=== PATIENT | female | born 1985 | race Caucasian/White ===

== ENCOUNTER → 2017-02-26 | Outpatient (CLI) | payer OTHER ==
[~2017-02-26] MED LIST: BENZ100A PO; CALCA500CH; CEPH500 PO; CYCL10 PO; FAMO40 PO; HYDACE5 PO; IBUP800 PO; LEVSOD100; LEVSOD125 PO; LEVSOD75 PO; OXYACE5T PO; Percocet 5-3251 EACH PO; Prednisone20 MG PO; Verotin-Gr Cap1 EACH; Zithromax250 MG PO
== END ==
LOC: LAB SHORT 11:22
DX: Z33.1 Pregnant state, incidental (principal)
CPT/HCPCS: 87081; 87653

== ENCOUNTER 2017-03-17 04:10 | Inpatient (IN) | payer OTHER ==
[~2017-03-17] VITALS: Ht 162.6 cm; Wt 174.6 kg
[~2017-03-17 04:10] MED LIST changes: -CEPH500 PO; -CYCL10 PO; -LEVSOD100
[2017-03-17] MEDS ORDERED: LEVSOD100 (09:14)
[2017-03-17 09:21] LABS: BASOPHILS ABSOLUTE AUTO 0.02 K/mm3 (0.00-0.23); BASOPHILS PERCENT AUTO 0 % (0-2); EOSINOPHILS ABSOLUTE AUTO 0.14 K/mm3 (0.00-0.68); EOSINOPHILS PERCENT AUTO 1 % (0-6); Hematocrit 36.9 % (33.0-51.0); Hemoglobin 12.4 g/dL (11.5-16.0); IMMATURE GRAN ABSOLUTE AUTO 0.05 K/mm3 (0.00-0.10); IMMATURE GRAN PERCENT AUTO 1 % (0-1); LYMPHOCYTES ABSOLUTE AUTO 1.79 K/mm3 (0.84-5.20); LYMPHOCYTES PERCENT AUTO 17 % (21-46); MONOCYTES PERCENT AUTO 5 % (4-13); Mean Corpuscular HGB 28.1 pg (26.0-34.0); Mean Corpuscular HGB Conc 33.6 g/dL (31.5-36.5); Mean Corpuscular Volume 84 fL (80-100); Mean Platelet Volume 11.2 fL (9.1-12.4); NEUTROPHILS PERCENT AUTO 77 % (41-73); Platelet Count 174 K/mm3 (150-400); RDW Coefficient Variation 13.7 % (11.7-14.2); RDW Standard Deviation 41.6 fL (35.1-46.3); Red Blood Cell Count 4.42 M/mm3 (3.80-5.20)
[2017-03-18 06:27] LABS: Hematocrit 36.9 % (33.0-51.0); Hemoglobin 12.1 g/dL (11.5-16.0); Mean Corpuscular HGB 27.9 pg (26.0-34.0); Mean Corpuscular HGB Conc 32.8 g/dL (31.5-36.5); Mean Corpuscular Volume 85 fL (80-100); Mean Platelet Volume 11.2 fL (9.1-12.4); Platelet Count 177 K/mm3 (150-400); RDW Coefficient Variation 13.6 % (11.7-14.2); RDW Standard Deviation 42.1 fL (35.1-46.3); Red Blood Cell Count 4.33 M/mm3 (3.80-5.20); White Blood Cell Count 12.32 K/mm3 (4.00-11.30)
[2017-03-19] MEDS ORDERED: IBUP800 PO (10:31)
[2017-03-19] MEDS ORDERED: Percocet 5-3251 EACH PO (10:32)
== END 2017-03-19 15:35 | disposition home or self-care (01) | DRG 775 ==
LOC: BC 04:10
PROVIDERS: Obstetrics & Gynecology
PROC: 10E0XZZ Delivery of Products of Conception, External Approach (ICD-10-PCS; principal; 2017-03-17)
PROC: 0HQ9XZZ Repair Perineum Skin, External Approach (ICD-10-PCS; 2017-03-17)
PROC: 10907ZC Drainage of Amniotic Fluid, Therapeutic from Products of Conception, Via Natural or Artificial Opening (ICD-10-PCS; 2017-03-17)
PROC: 3E033VJ Introduction of Other Hormone into Peripheral Vein, Percutaneous Approach (ICD-10-PCS; 2017-03-17)
PROC: 10H07YZ Insertion of Other Device into Products of Conception, Via Natural or Artificial Opening (ICD-10-PCS; 2017-03-17)
DX: O24.424 Gestational diabetes mellitus in childbirth, insulin controlled (principal); Z68.44 Body mass index [BMI] 60.0-69.9, adult; E66.01 Morbid (severe) obesity due to excess calories; O99.824 Streptococcus B carrier state complicating childbirth; Z37.0 Single live birth; Z3A.39 39 weeks gestation of pregnancy; O99.214 Obesity complicating childbirth; O70.0 First degree perineal laceration during delivery; O69.81X0 Labor and delivery complicated by cord around neck, without compression, not applicable or unspecified; O99.284 Endocrine, nutritional and metabolic diseases complicating childbirth; E03.9 Hypothyroidism, unspecified; Z87.891 Personal history of nicotine dependence
CPT/HCPCS: 36415; 51702; 59025; 82947; 85025; 85027; 90471; 90707; 99213; J0290; J1885; J2210; J2590; J3010; J7050; J7120

== ENCOUNTER 2017-08-13 14:44 | Emergency (ER) | payer OTHER ==
[~2017-08-13] VITALS: Ht 162.6 cm; Wt 171.5 kg
[~2017-08-13 14:44] MED LIST changes: +LEVSOD100
[2017-08-13 15:56] LABS: Source, Urine Clean Catch
[2017-08-13 16:01] LABS: Appearance, Urine Clear (Clear); Bilirubin, Urine Neg (Neg); Blood, Urine 3+ (Neg); Color, Urine Yellow (P-Yellow); Glucose Qualitative, Urine Neg (Neg); Ketones, Urine Neg (Neg); Leukocyte Esterase, Urine 2+ (Neg); Nitrite, Urine Neg (Neg); Protein, Urine 2+ (Neg); Urobilinogen, Urine 1+ (Normal)
[2017-08-13 16:18] LABS: Bacteria Many /hpf; Mucus Light (0-Heavy); Red Blood Cells, Urine 0-2 /hpf (0-2); Squamous Epithelial Cells Many /hpf (Few)
[2017-08-13] MEDS ORDERED: CEPH500 PO (16:28)
[2017-08-13] MEDS ORDERED: CYCL10 PO (16:28)
[2017-08-13] MEDS ORDERED: IBUP800 PO (16:28)
== END 2017-08-13 16:33 | disposition home or self-care (01) ==
LOC: ER 14:44
PROVIDERS: Physician Assistant
DX: M53.3 Sacrococcygeal disorders, not elsewhere classified (principal); N39.0 Urinary tract infection, site not specified; E03.9 Hypothyroidism, unspecified; Z79.899 Other long term (current) drug therapy; Z87.891 Personal history of nicotine dependence
CPT/HCPCS: 81001; 81025; 87086; 96372; 99283; J1885

== ENCOUNTER → 2017-09-09 | Outpatient (CLI) | payer OTHER ==
[~2017-09-09] MED LIST changes: +CEPH500 PO; +CYCL10 PO
== END | disposition home or self-care (01) ==
LOC: LAB 15:21 → LAB SHORT 15:21
PROVIDERS: Obstetrics & Gynecology
DX: Z01.419 Encounter for gynecological examination (general) (routine) without abnormal findings (principal)
CPT/HCPCS: 87624; G0123

== ENCOUNTER → 2021-06-24 | Outpatient (CLI) | payer OTHER | LOC: LAB 13:00 → LAB SHORT 13:00 | DX: R39.15 Urgency of urination (principal) | CPT/HCPCS: 87077; 87086; 87186 ==

== ENCOUNTER 2021-07-20 21:38 | Emergency (ER) | payer OTHER ==
[~2021-07-20] VITALS: Ht 162.6 cm; Wt 158.3 kg
[2021-07-21 02:10] LABS: BASOPHILS ABSOLUTE AUTO 0.05 K/mm3 (0.00-0.23); BASOPHILS PERCENT AUTO 1 % (0-2); EOSINOPHILS ABSOLUTE AUTO 0.38 K/mm3 (0.00-0.68); EOSINOPHILS PERCENT AUTO 5 % (0-6); Hematocrit 40.2 % (33.0-51.0); IMMATURE GRAN ABSOLUTE AUTO 0.03 K/mm3 (0.00-0.10); IMMATURE GRAN PERCENT AUTO 0 % (0-1); LYMPHOCYTES ABSOLUTE AUTO 2.17 K/mm3 (0.84-5.20); LYMPHOCYTES PERCENT AUTO 26 % (21-46); MONOCYTES PERCENT AUTO 7 % (4-13); Mean Corpuscular HGB 27.7 pg (26.0-34.0); Mean Corpuscular HGB Conc 32.3 g/dL (31.5-36.5); Mean Corpuscular Volume 86 fL (80-100); Mean Platelet Volume 10.6 fL (9.1-12.4); NEUTROPHILS ABSOLUTE AUTO 5.16 K/mm3 (1.96-9.15); NEUTROPHILS PERCENT AUTO 61 % (41-73); Platelet Count 263 K/mm3 (150-400); RDW Coefficient Variation 15.1 % (11.7-14.2); RDW Standard Deviation 46.5 fL (35.1-46.3); Red Blood Cell Count 4.69 M/mm3 (3.80-5.20); White Blood Cell Count 8.39 K/mm3 (4.00-11.30)
[2021-07-21 02:25] LABS: Bun/Creatinine Ratio 14.4 (12.0-20.0); Calcium, Blood 9.3 mg/dL (8.5-10.1); Creatinine, Blood 0.7 mg/dL (0.40-1.00); Potassium, Blood 3.7 mmol/L (3.5-5.5)
== END 2021-07-21 05:00 | disposition home or self-care (01) ==
LOC: ER 21:38
PROVIDERS: Student in an Organized Health Care Education/Training Program
DX: R42 Dizziness and giddiness (principal); E03.9 Hypothyroidism, unspecified; E66.9 Obesity, unspecified; Z68.43 Body mass index [BMI] 50.0-59.9, adult; Z87.891 Personal history of nicotine dependence; Z98.84 Bariatric surgery status; Z79.899 Other long term (current) drug therapy
CPT/HCPCS: 36415; 80048; 85025; 93005; 93010; 96360; 99284-25; J7030

== ENCOUNTER → 2021-08-19 | Outpatient (CLI) | payer OTHER ==
[2021-08-19 14:42] LABS: G. vaginalis (DNA Probe) Positive (NEGATIVE); T. vaginalis (DNA Probe) Negative (NEGATIVE)
[2021-08-19 14:43] LABS: Candida species (DNA Probe) Positive (NEGATIVE)
== END ==
LOC: LAB SHORT 09:37
PROVIDERS: Obstetrics & Gynecology
DX: Z11.3 Encounter for screening for infections with a predominantly sexual mode of transmission (principal); N89.8 Other specified noninflammatory disorders of vagina
CPT/HCPCS: 87480; 87510; 87660

== ENCOUNTER → 2022-05-25 | Outpatient (CLI) | payer OTHER ==
[~2022-05-25] MED LIST changes: +EUTHYROX75 MC1 PO; +PRENATAL TABLE1 EAC2 PO
== END ==
LOC: LAB 17:42 → LAB SHORT 17:42
DX: L02.214 Cutaneous abscess of groin (principal)
CPT/HCPCS: 87070; 87075; 87077; 87147; 87186; 87205

== ENCOUNTER → 2022-07-10 | Outpatient (CLI) | payer OTHER | END | disposition home or self-care (01) | LOC: LAB SHORT 16:34 → LAB 16:34 | DX: O09.892 Supervision of other high risk pregnancies, second trimester (principal) | CPT/HCPCS: 87081; 87150 ==

== ENCOUNTER → 2022-07-14 | Outpatient (CLI) | payer OTHER ==
[2022-07-14 14:05] LABS: Candida species (DNA Probe) Positive (NEGATIVE); G. vaginalis (DNA Probe) Positive (NEGATIVE); T. vaginalis (DNA Probe) Negative (NEGATIVE)
== END | disposition home or self-care (01) ==
LOC: LAB SHORT 11:43 → LAB 11:43
PROVIDERS: Obstetrics & Gynecology
DX: N76.0 Acute vaginitis (principal)
CPT/HCPCS: 87480; 87510; 87660

== ENCOUNTER 2022-08-10 06:40 | Inpatient (IN) | payer OTHER ==
[~2022-08-10] VITALS: Ht 162.6 cm; Wt 121.5 kg
[2022-08-10] VITALS (32 sets, daily range): BP systolic 89–151; BP diastolic 45–82
[~2022-08-10 06:40] MED LIST changes: +B12-FOLIC ACID1 EACH PO; +THERA-D2000 UNIT PO
[2022-08-10 08:27] LABS: BASOPHILS ABSOLUTE AUTO 0.02 K/mm3 (0.00-0.23); BASOPHILS PERCENT AUTO 0 % (0-2); EOSINOPHILS ABSOLUTE AUTO 0.12 K/mm3 (0.00-0.68); EOSINOPHILS PERCENT AUTO 2 % (0-6); IMMATURE GRAN ABSOLUTE AUTO 0.02 K/mm3 (0.00-0.10); IMMATURE GRAN PERCENT AUTO 0 % (0-1); LYMPHOCYTES ABSOLUTE AUTO 1.45 K/mm3 (0.84-5.20); LYMPHOCYTES PERCENT AUTO 20 % (21-46); MONOCYTES ABSOLUTE AUTO 0.37 K/mm3 (0.16-1.47); MONOCYTES PERCENT AUTO 5 % (4-13); Mean Corpuscular HGB 28.9 pg (26.0-34.0); Mean Corpuscular HGB Conc 34.4 g/dL (31.5-36.5); Mean Corpuscular Volume 84 fL (80-100); Mean Platelet Volume 11.2 fL (9.1-12.4); NEUTROPHILS PERCENT AUTO 73 % (41-73); Platelet Count 150 K/mm3 (150-400); RDW Coefficient Variation 13.8 % (11.7-14.2); RDW Standard Deviation 41.7 fL (35.1-46.3); White Blood Cell Count 7.38 K/mm3 (4.00-11.30)
--- NOTE | 2022-08-10 19:08 | NUR ---
REPORT TO ANDREW ALLEN. FUNDUS FIRM BUT EXPRESS CLOTS WITH EACH RUB. METHERGINE IM GIVEN AT [phone]. QBL NOW [phone]. DR RAMOS UPDATED AND DR RILEY NOW ASSUMING CARE.
[2022-08-11 04:34] VITALS: BP 113/56
[2022-08-11 06:57] LABS: Hematocrit 29.1 % (33.0-51.0); Hemoglobin 9.9 g/dL (11.5-16.0); Mean Corpuscular HGB 28.7 pg (26.0-34.0); Mean Corpuscular Volume 84 fL (80-100); Mean Platelet Volume 10.9 fL (9.1-12.4); Platelet Count 136 K/mm3 (150-400); RDW Coefficient Variation 13.8 % (11.7-14.2); RDW Standard Deviation 41.6 fL (35.1-46.3); Red Blood Cell Count 3.45 M/mm3 (3.80-5.20); White Blood Cell Count 8.52 K/mm3 (4.00-11.30)
[2022-08-11 08:22] VITALS: BP 112/68
[2022-08-11 11:27] VITALS: BP 105/58
[2022-08-11 15:15] VITALS: BP 116/60
--- NOTE | 2022-08-11 18:37 | NUR ---
PATIENT EDUCATION DONE. PATIENT VERBALIZED UNDERSTANDING, DENIED ANY FURTHER QUESTIONS OR CONCERNS. IV D/C. PATIENT DISCHARGED TO [facility]ARDER STATUS.
[2022-08-11 18:50] VITALS: BP 110/65
== END 2022-08-11 19:13 | disposition home or self-care (01) | DRG 806 ==
LOC: OBS 06:40 → BC 06:56
PROVIDERS: Obstetrics & Gynecology; ADMIT Obstetrics & Gynecology
PROC: 10E0XZZ Delivery of Products of Conception, External Approach (ICD-10-PCS; principal; 2022-08-10)
PROC: 0KQM0ZZ Repair Perineum Muscle, Open Approach (ICD-10-PCS; 2022-08-10)
PROC: 10907ZC Drainage of Amniotic Fluid, Therapeutic from Products of Conception, Via Natural or Artificial Opening (ICD-10-PCS; 2022-08-10)
PROC: 3E033VJ Introduction of Other Hormone into Peripheral Vein, Percutaneous Approach (ICD-10-PCS; 2022-08-10)
PROC: 3E0R3BZ Introduction of Anesthetic Agent into Spinal Canal, Percutaneous Approach (ICD-10-PCS; 2022-08-10)
PROC: 00HU33Z Insertion of Infusion Device into Spinal Canal, Percutaneous Approach (ICD-10-PCS; 2022-08-10)
PROC: 10H07YZ Insertion of Other Device into Products of Conception, Via Natural or Artificial Opening (ICD-10-PCS; 2022-08-10)
DX: O99.344 Other mental disorders complicating childbirth (principal); D62 Acute posthemorrhagic anemia; Z37.0 Single live birth; O72.1 Other immediate postpartum hemorrhage; O99.284 Endocrine, nutritional and metabolic diseases complicating childbirth; O99.844 Bariatric surgery status complicating childbirth; E03.9 Hypothyroidism, unspecified; F41.9 Anxiety disorder, unspecified; O99.214 Obesity complicating childbirth; O69.1XX0 Labor and delivery complicated by cord around neck, with compression, not applicable or unspecified; O70.1 Second degree perineal laceration during delivery; O90.81 Anemia of the puerperium; Z3A.39 39 weeks gestation of pregnancy; Z87.891 Personal history of nicotine dependence; Z79.890 Hormone replacement therapy; Z90.49 Acquired absence of other specified parts of digestive tract; Z79.899 Other long term (current) drug therapy; Z67.10 Type A blood, Rh positive
CPT/HCPCS: 36415; 51702; 85025; 85027; 86850; 86900; 86901; A9270; J1885; J2210; J2590; J2916; J7120

== ENCOUNTER → 2022-09-25 | Outpatient (CLI) | payer OTHER ==
[2022-09-26 10:49] LABS: Candida species (DNA Probe) Negative (NEGATIVE); G. vaginalis (DNA Probe) Positive (NEGATIVE); T. vaginalis (DNA Probe) Negative (NEGATIVE)
== END | disposition home or self-care (01) ==
LOC: LAB SHORT 18:01
PROVIDERS: Obstetrics & Gynecology
DX: N89.8 Other specified noninflammatory disorders of vagina (principal)
CPT/HCPCS: 87480; 87510; 87660

== ENCOUNTER 2022-10-12 09:48 | Day surgery (SDC) | payer OTHER ==
[~2022-10-12] VITALS: Ht 165.1 cm; Wt 113.5 kg
[2022-10-12] VITALS (14 sets, daily range): BP systolic 109–142; BP diastolic 66–97
--- NOTE | 2022-10-12 11:23 | NUR ---
Ambulatory in Day Surgery. History, Chart, Medications and Allergies reviewed before start of procedure. Lungs clear T/O to Auscultation. Patient confirms NPO status and agrees with scheduled surgery. Pre-Op teaching done. Pt verbalizes understanding. Patient States Post-Procedure ride home has been arranged. PT BELONGINGS PLACED UNDERNEATH GURNEY FOR SAFEKEEPING. PT GLASSES TAKEN TO PACU FOR SAFEKEEPING. PT NOSE RING UNABLE TO REMOVE, NOSE RING TAPED. DR FRY.
[2022-10-12 16:23] LABS: Hematocrit 35.2 % (33.0-51.0)
[2022-10-13 00:04] VITALS: BP 141/72
[2022-10-13 03:20] VITALS: BP 137/84
--- NOTE | 2022-10-13 04:05 | NUR ---
SHIFT SUMMARY POD1 BILAT SALPINGECTOMY, PARTIAL RIGHT, TOTAL LEFT. X3 LAP SITES ARE C/D/I, GAUZE DRESSING OVER LOWER UMBILICAL INCISION. VAGINAL PACKING IN PLACE, PLAN TO REMOVE THIS AM. HERNANDEZ IN PLACE, DRAINING PALE YELLOW URINE. PT TOLLERATING PO ITNAKE T/O THE NIGHT W/O N/V. NO FLATTUS NOTED. MEDICATED FOR PAIN WTIH OXY AND TYLENOL. NO ACUTE EVENTS NOTED. PLAN TOP D/C HOME TODAY
[2022-10-13 04:22] LABS: BASOPHILS ABSOLUTE AUTO 0.01 K/mm3 (0.00-0.23); BASOPHILS PERCENT AUTO 0 % (0-2); EOSINOPHILS ABSOLUTE AUTO 0.01 K/mm3 (0.00-0.68); EOSINOPHILS PERCENT AUTO 0 % (0-6); Hematocrit 30.5 % (33.0-51.0); Hemoglobin 9.7 g/dL (11.5-16.0); IMMATURE GRAN ABSOLUTE AUTO 0.03 K/mm3 (0.00-0.10); IMMATURE GRAN PERCENT AUTO 0 % (0-1); LYMPHOCYTES ABSOLUTE AUTO 1.01 K/mm3 (0.84-5.20); LYMPHOCYTES PERCENT AUTO 9 % (21-46); MONOCYTES ABSOLUTE AUTO 0.65 K/mm3 (0.16-1.47); MONOCYTES PERCENT AUTO 6 % (4-13); Mean Corpuscular HGB 25.7 pg (26.0-34.0); Mean Corpuscular HGB Conc 31.8 g/dL (31.5-36.5); Mean Corpuscular Volume 81 fL (80-100); Mean Platelet Volume 11.1 fL (9.1-12.4); NEUTROPHILS ABSOLUTE AUTO 9.11 K/mm3 (1.96-9.15); NEUTROPHILS PERCENT AUTO 84 % (41-73); Platelet Count 204 K/mm3 (150-400); RDW Coefficient Variation 13.4 % (11.7-14.2); RDW Standard Deviation 39.1 fL (35.1-46.3); Red Blood Cell Count 3.78 M/mm3 (3.80-5.20); White Blood Cell Count 10.82 K/mm3 (4.00-11.30)
--- NOTE | 2022-10-13 06:26 | NUR ---
REMOVAL VAGINAL PACKING REMOVED, MODERATE DARK BLOOD NOTED ON PACKING. HERNANDEZ REMOVED. PT REPORTS FEELING "MUCH BETTER" AFTER REMOVAL
[2022-10-13 07:13] VITALS: BP 115/60
--- NOTE | 2022-10-13 10:49 | NUR ---
DISCHARGE SUMMARY POD1 ANTERIOR/POSTERIOR/BILATERAL SALPINGECTOMY, A/OX4, VSS, TOLERATING PO, 3 ABD LAPS WITH DERMABOND IN PLACE C/D/I, PACKING WAS REMOVED THIS AM BY BEAN RN, HERNANDEZ REMOVED AT THE SAME TIME PER REPORT, PT ABLE TO GET UP AND AMBULATE WITHOUT ASSISTANCE IN HER ROOM, PAIN WELL MANAGED, SHE DID REPORT SOME MILD NAUSEA BUT NO EMISIS AND WAS MEDICATED ORDERED, IV REMOVED PRIOR TO DC. DISCUSSSED DISCHARGE INFORMATION WITH HER INCLUDING HOME CARE, MEDCIATIONS, AND FOLLOW UP APPOINTMENTS, MEDICATIONS TO BE SENT DIGITALLY BY MD. NO QUESTIONS AT THIS TIME, ESCORTED OUT VIA WC TO PRIVATE AUTO TO GO HOME.
== END 2022-10-13 10:31 | disposition home or self-care (01) ==
LOC: ORSCMMR 09:48 → ORD 11:00 → ORSCMMR 11:30 → ORD 11:30 → SURS 16:30 → ORSCMMR 16:30 → SURS 10-13 10:31
PROVIDERS: Anesthesiology; Obstetrics & Gynecology
PROC: 0JQC0ZZ Repair Pelvic Region Subcutaneous Tissue and Fascia, Open Approach (ICD-10-PCS; principal; 2022-10-12 11:30)
PROC: 0UT74ZZ Resection of Bilateral Fallopian Tubes, Percutaneous Endoscopic Approach (ICD-10-PCS; principal; 2022-10-12 11:30)
DX: Z30.2 Encounter for sterilization (principal); N81.6 Rectocele; N81.5 Vaginal enterocele; E66.01 Morbid (severe) obesity due to excess calories; Z68.41 Body mass index [BMI] 40.0-44.9, adult; Z79.899 Other long term (current) drug therapy
CPT/HCPCS: 36415; 85014; 85018; 85025; 88302; A9270; J1100; J1170; J2250; J2371; J2405; J2704; J3010; J7120

== ENCOUNTER → 2023-02-12 | Outpatient (CLI) | payer OTHER ==
[2023-02-12 15:45] LABS: BASOPHILS ABSOLUTE AUTO 0.03 K/mm3 (0.00-0.23); BASOPHILS PERCENT AUTO 0 % (0-2); EOSINOPHILS ABSOLUTE AUTO 0.27 K/mm3 (0.00-0.68); EOSINOPHILS PERCENT AUTO 4 % (0-6); Hematocrit 37.6 % (33.0-51.0); Hemoglobin 11.2 g/dL (11.5-16.0); IMMATURE GRAN ABSOLUTE AUTO 0.01 K/mm3 (0.00-0.10); IMMATURE GRAN PERCENT AUTO 0 % (0-1); LYMPHOCYTES ABSOLUTE AUTO 2.04 K/mm3 (0.84-5.20); LYMPHOCYTES PERCENT AUTO 26 % (21-46); MONOCYTES ABSOLUTE AUTO 0.56 K/mm3 (0.16-1.47); MONOCYTES PERCENT AUTO 7 % (4-13); Mean Corpuscular HGB 22.4 pg (26.0-34.0); Mean Corpuscular HGB Conc 29.8 g/dL (31.5-36.5); Mean Corpuscular Volume 75 fL (80-100); NEUTROPHILS ABSOLUTE AUTO 4.81 K/mm3 (1.96-9.15); NEUTROPHILS PERCENT AUTO 62 % (41-73); Platelet Count 216 K/mm3 (150-400); RDW Coefficient Variation 14.7 % (11.7-14.2); RDW Standard Deviation 39.5 fL (35.1-46.3); Red Blood Cell Count 5.01 M/mm3 (3.80-5.20); White Blood Cell Count 7.72 K/mm3 (4.00-11.30)
[2023-02-12 16:23] LABS: Percent Saturation 5.7 % (15.0-50.0)
== END | disposition home or self-care (01) ==
LOC: LAB SHORT 13:00 → LAB 13:00
PROVIDERS: Obstetrics & Gynecology
DX: Z01.419 Encounter for gynecological examination (general) (routine) without abnormal findings (principal); D50.8 Other iron deficiency anemias
CPT/HCPCS: 82728; 83540; 83550; 85025